=== PATIENT | male | born 1990 | race Two or more races ===

== ENCOUNTER 2017-10-05 13:26 | Emergency (ER) | payer OTHER ==
[~2017-10-05] VITALS: Ht 182.9 cm; Wt 79.5 kg
[~2017-10-05 13:26] MED LIST: CELE10TA PO; CLEO300C2 PO; FOLI1TAB86 PO; MULTTAB4 PO; THIA100T PO; no home medications
[2017-10-05] MEDS ORDERED: ACET50TA PO (13:39)
[2017-10-05] MEDS ORDERED: AMIT25TA PO (13:39)
[2017-10-05] MEDS ORDERED: DILA4TAB13 PO (13:39)
[2017-10-05] MEDS ORDERED: MOTR200T44 PO (13:39)
[2017-10-05] MEDS ORDERED: GABA-283 PO (13:39)
[2017-10-05 17:33] LABS: BASO # 0.1 10^3/uL (0.0-0.2); BASO % 0.3 % (0.0-1.0); EOS % 0.2 % (0.0-3.0); LYMPH # 2.6 10^3/uL (1.5-6.5); MEAN CORPUSCULAR HEMOGLOBIN 33.2 pg (27.0-33.0); MEAN CORPUSCULAR HGB CONC 34.5 g/dl (32.0-36.5); MEAN CORPUSCULAR VOLUME 96.4 fl (80.0-96.0); MONO # 1.6 10^3/uL (0.0-0.8); NEUTROPHILS # 12.8 10^3/uL (1.8-7.7); NEUTROPHILS % 74.5 % (36.0-66.0); PLATELET COUNT, AUTOMATED 146 10^3/uL (150-450); RED CELL DISTRIBUTION WIDTH 12.5 % (11.5-14.5); WHITE BLOOD COUNT 17.2 10^3/uL (4.0-10.0)
[2017-10-05 17:52] LABS: ANION GAP 5 MEQ/L (8-16); BLOOD UREA NITROGEN 8 MG/DL (7-18); CALCIUM LEVEL 8.6 MG/DL (8.5-10.1); CARBON DIOXIDE LEVEL 29 MEQ/L (21-32); CHLORIDE LEVEL 102 MEQ/L (98-107); GLOMERULAR FILTRATION RATE > 60.0 (>60); GLUCOSE, FASTING 77 MG/DL (70-105); POTASSIUM SERUM 4.2 MEQ/L (3.5-5.1); SODIUM LEVEL 136 MEQ/L (136-145)
[2017-10-05] MEDS ORDERED: BACT800T5 PO (18:29)
[2017-10-05] MEDS ORDERED: BACTRIM 160MG/800MG DS TAB PO ONE (18:30)
--- NOTE | 2017-10-05 19:20 | REP ---
Clinical: Pain and swelling. Technique: AP and lateral views of the left tibia / fibula. Findings: Surgical clips in the medial soft tissues of the calf noted along with soft tissue swelling at the calf and ankle. No acute fracture or dislocation. Impression: Soft-tissue swelling and postsurgical changes. No acute fracture dislocation. Signed by Tre Rosales MD 10/05/2017 07:11 P
--- NOTE | 2017-10-05 19:21 | REP ---
Clinical: Pain and swelling. Technique: AP, lateral, bilateral oblique views of the left foot. Findings: Soft tissue swelling is appreciated without subcutaneous emphysema or radiodense foreign body. Osseous structures and joint spaces are intact and normal. No acute fracture dislocation. Impression: Soft-tissue swelling. Signed by Tre Rosales MD 10/05/2017 07:12 P
--- NOTE | 2017-10-05 19:40 | REPUSA ---
Clinical history: Pain, swelling. Findings: The left common femoral, superficial femoral, popliteal, and other deep venous structures c ompress normally and demonstrate normal color Doppler flow. Normal venous waveforms with augmentation are seen. Impression: No evidence of deep vein thrombosis in the left femoral popliteal venous system.
[2017-10-05 20:01] VITALS: BP 117/72
== END 2017-10-05 20:28 | disposition home or self-care (01) ==
LOC: M ED 13:26
DX: M79.89 Other specified soft tissue disorders (principal); D72.829 Elevated white blood cell count, unspecified; R50.9 Fever, unspecified; Z98.890 Other specified postprocedural states; F17.210 Nicotine dependence, cigarettes, uncomplicated; Z79.899 Other long term (current) drug therapy

== ENCOUNTER 2017-10-17 10:35 | Outpatient (RCR) | payer MEDICAID, OTHER, SELFPAY | END 2017-11-10 | LOC: M PT 10-24 10:33 | DX: Z51.89 Encounter for other specified aftercare (principal); M79.672 Pain in left foot; Z98.890 Other specified postprocedural states | CPT/HCPCS: 97110 ==

== ENCOUNTER → 2017-10-20 | Outpatient (CLI) | payer MEDICAID ==
[~2017-10-20] MED LIST changes: +ACET50TA PO; +AMIT25TA PO; +BACT800T5 PO; +DILA4TAB13 PO; +GABA-283 PO; +MOTR200T44 PO
[2017-10-20 11:31] LABS: BASO % 0.5 % (0.0-1.0); EOS % 0.3 % (0.0-3.0); IMMATURE GRANULOCYTE % 0.3 % (0-0); LYMPH # 1.6 10^3/uL (1.5-6.5); LYMPH % 21.1 % (24.0-44.0); MEAN CORPUSCULAR HGB CONC 34.3 g/dl (32.0-36.5); MEAN CORPUSCULAR VOLUME 93.3 fl (80.0-96.0); MONO # 0.6 10^3/uL (0.0-0.8); MONO % 8.3 % (0.0-5.0); NEUTROPHILS # 5.3 10^3/uL (1.8-7.7); NEUTROPHILS % 69.5 % (36.0-66.0); PLATELET COUNT, AUTOMATED 204 10^3/uL (150-450); RED CELL DISTRIBUTION WIDTH 12.5 % (11.5-14.5); WHITE BLOOD COUNT 7.6 10^3/uL (4.0-10.0)
[2017-10-20 14:50] LABS: ERYTHROCYTE SEDIMENTATION RATE 61 mm/hr (0-15)
== END ==
LOC: M LAB 10:48
PROVIDERS: ATTEND Student in an Organized Health Care Education/Training Program
DX: R50.9 Fever, unspecified (principal)

== ENCOUNTER → 2017-10-22 | Outpatient (CLI) | payer MEDICAID | LOC: M OUTALCOH 07:40 | PROVIDERS: ATTEND Psychiatry & Neurology Psychiatry | DX: F11.20 Opioid dependence, uncomplicated (principal) ==

== ENCOUNTER → 2017-10-25 | Outpatient (CLI) | payer MEDICAID ==
[2017-10-25 11:43] LABS: BASO # 0.1 10^3/uL (0.0-0.2); BASO % 0.9 % (0.0-1.0); EOS # 0.2 10^3/uL (0.0-0.50); EOS % 2.2 % (0.0-3.0); IMMATURE GRANULOCYTE % 0.4 % (0-0); LYMPH # 3.1 10^3/uL (1.5-6.5); LYMPH % 33.3 % (24.0-44.0); MEAN CORPUSCULAR HEMOGLOBIN 31.3 pg (27.0-33.0); MEAN CORPUSCULAR HGB CONC 33.4 g/dl (32.0-36.5); MEAN CORPUSCULAR VOLUME 93.6 fl (80.0-96.0); MONO % 10.4 % (0.0-5.0); NEUTROPHILS % 52.8 % (36.0-66.0); PLATELET COUNT, AUTOMATED 386 10^3/uL (150-450); WHITE BLOOD COUNT 9.4 10^3/uL (4.0-10.0)
[2017-10-25 12:03] LABS: ERYTHROCYTE SEDIMENTATION RATE 46 mm/hr (0-15)
--- NOTE | 2017-10-28 16:08 | ECHO ---
DATE OF STUDY: 10/25/2017 REFERRING PHYSICIAN: Dr. Mario Harding INDICATION: Fever. HEIGHT: 183 cm WEIGHT: 79 kg 2-D MEASUREMENTS: Left atrium: 3.8 cm Aortic root: 3.4 cm Ventricular septum: 1.05 cm Posterior wall: 1.11 cm. Left ventricle diastole: 4.9 cm Aortic annulus: 2.5 cm Inferior vena cava: 2.2 cm with more than 50% respiratory variation. DOPPLER MEASUREMENTS: Aortic valve velocity: 116 cm/s LVOT velocity: 66.2 cm/s Mitral E velocity: 77.0cm/s Mitral A velocity: 65.2 cm/s Very mild tricuspid regurgitation. Estimated right ventricle systolic pressure 25 mmHg assuming an atrial pressure of 5 mmHg. MITRAL ANNULAR TISSUE DOPPLER: E prime septal: 7.3 cm/s E prime lateral: 12.7 cm/s DESCRIPTION: Rhythm was sinus. Image quality was good. No pericardial effusion. This was a 2-D, M-mode, color flow Doppler and pulse waved Doppler examination and included mitral annular tissue Doppler. CONCLUSIONS: 1. Normal echocardiogram-Doppler. 2. No vegetations. 3. Normal left ventricle, internal dimensions and wall thickness. Normal regional LV wall motion and wall thickening. Normal LV systolic function. Left ventricular ejection fraction (LVEF) 60% by visual estimate. Normal LV diastolic function.
== END ==
LOC: M LAB 10:45
PROVIDERS: ATTEND Family Medicine
DX: R50.9 Fever, unspecified (principal)

== ENCOUNTER 2017-11-12 10:47 | Outpatient (RCR) | payer OTHER, MEDICAID | END 2017-12-11 | LOC: M PT 10:47 | DX: Z51.89 Encounter for other specified aftercare (principal); M79.672 Pain in left foot ==

== ENCOUNTER → 2017-12-10 | Outpatient (CLI) | payer OTHER ==
[2017-12-10 13:49] LABS: ALBUMIN 4.3 GM/DL (3.2-5.2); ALBUMIN/GLOBULIN RATIO 1.02 (1.00-1.93); ALKALINE PHOSPHATASE 59 U/L (45-117); ALT/SGPT 19 U/L (12-78); ANION GAP 7 MEQ/L (8-16); AST/SGOT 18 U/L (7-37); BILIRUBIN,TOTAL 0.6 MG/DL (0.2-1.0); BLOOD UREA NITROGEN 16 MG/DL (7-18); CALCIUM LEVEL 9.3 MG/DL (8.5-10.1); CARBON DIOXIDE LEVEL 30 MEQ/L (21-32); CHLORIDE LEVEL 100 MEQ/L (98-107); CREATININE FOR GFR 0.74 MG/DL (0.70-1.30); GLOMERULAR FILTRATION RATE > 60.0 (>60); GLUCOSE, FASTING 65 MG/DL (70-100); POTASSIUM SERUM 4.4 MEQ/L (3.5-5.1); SODIUM LEVEL 137 MEQ/L (136-145); TOTAL PROTEIN 8.5 GM/DL (6.4-8.2)
[2017-12-11 13:10] LABS: HEPATITIS C VIRUS ABY INDEX > 11.0 INDEX (<0.8)
[2017-12-13 08:07] LABS: HEPATITIS C QUANTITATION 110 IU/mL (.)
== END ==
LOC: M LAB 12:06
DX: Z86.19 Personal history of other infectious and parasitic diseases (principal)
CPT/HCPCS: 80053

== ENCOUNTER → 2017-12-11 | Outpatient (CLI) | payer OTHER ==
[~2017-12-11] MED LIST changes: -ACET50TA PO; -AMIT25TA PO; -BACT800T5 PO; -CELE10TA PO; -CLEO300C2 PO; -DILA4TAB13 PO; -FOLI1TAB86 PO; -GABA-283 PO; +MIDAZOLAM INJ 2 MG/2 ML VIAL (J2250) As Ordered; -MOTR200T44 PO; -MULTTAB4 PO; -THIA100T PO; -no home medications
== END ==
LOC: M PAIN 14:30
DX: G89.29 Other chronic pain (principal); M79.605 Pain in left leg; M25.572 Pain in left ankle and joints of left foot; F11.10 Opioid abuse, uncomplicated; F41.0 Panic disorder [episodic paroxysmal anxiety]; F17.200 Nicotine dependence, unspecified, uncomplicated; Z79.1 Long term (current) use of non-steroidal anti-inflammatories (NSAID); Z79.899 Other long term (current) drug therapy; Z87.828 Personal history of other (healed) physical injury and trauma; Z86.19 Personal history of other infectious and parasitic diseases
CPT/HCPCS: G0463

== ENCOUNTER 2017-12-19 10:51 | Outpatient (RCR) | payer OTHER | END 2018-01-08 | LOC: M PT 10:51 | DX: Z51.89 Encounter for other specified aftercare (principal); M79.672 Pain in left foot ==

== ENCOUNTER 2018-01-09 14:19 | Outpatient (RCR) | payer OTHER | END 2018-02-08 | LOC: M PT 01-16 14:30 | DX: Z51.89 Encounter for other specified aftercare (principal); M79.672 Pain in left foot ==

== ENCOUNTER 2018-02-07 19:48 | Emergency (ER) | payer OTHER ==
[2018-02-07 20:32] LABS: BASO % 0.3 % (0.0-1.0); EOS # 0.1 10^3/uL (0.0-0.50); EOS % 0.5 % (0.0-3.0); HEMATOCRIT 42.3 % (42.0-52.0); HEMOGLOBIN 15.1 g/dl (13.5-17.5); IMMATURE GRANULOCYTE % 0.3 % (0-3.0); LYMPH # 1.9 10^3/uL (1.5-6.5); LYMPH % 17.1 % (24.0-44.0); MEAN CORPUSCULAR HEMOGLOBIN 29.9 pg (27.0-33.0); MEAN CORPUSCULAR HGB CONC 35.7 g/dl (32.0-36.5); MEAN CORPUSCULAR VOLUME 83.8 fl (80.0-96.0); MONO # 0.5 10^3/uL (0.0-0.8); MONO % 4.5 % (0.0-5.0); NEUTROPHILS # 8.5 10^3/uL (1.8-7.7); NEUTROPHILS % 77.3 % (36.0-66.0); PLATELET COUNT, AUTOMATED 277 10^3/uL (150-450); RED BLOOD COUNT 5.05 10^6/uL (4.30-6.10); RED CELL DISTRIBUTION WIDTH 13.1 % (11.5-14.5); WHITE BLOOD COUNT 10.9 10^3/uL (4.0-10.0)
[2018-02-07 20:33] LABS: BEDSIDE GLUCOSE 93 MG/DL (70-105)
[2018-02-07 21:01] LABS: OSMOLALITY SERUM 291 MOSM/KG (275-295)
[2018-02-07 21:06] LABS: ALBUMIN/GLOBULIN RATIO 1.03 (1.00-1.93); ALKALINE PHOSPHATASE 74 U/L (45-117); ALT/SGPT 19 U/L (12-78); ANION GAP 9 MEQ/L (8-16); AST/SGOT 38 U/L (7-37); BILIRUBIN,DIRECT 0.2 MG/DL (0.0-0.2); BLOOD UREA NITROGEN 17 MG/DL (7-18); CALCIUM LEVEL 8.8 MG/DL (8.5-10.1); CARBON DIOXIDE LEVEL 23 MEQ/L (21-32); CHLORIDE LEVEL 107 MEQ/L (98-107); CPK CREATINE PHOSPHOKINASE 175 U/L (39-308); CREATININE FOR GFR 0.82 MG/DL (0.70-1.30); GLOMERULAR FILTRATION RATE > 60.0 (>60); GLUCOSE, FASTING 67 MG/DL (70-100); POTASSIUM SERUM 4.4 MEQ/L (3.5-5.1); SODIUM LEVEL 139 MEQ/L (136-145); TOTAL PROTEIN 7.9 GM/DL (6.4-8.2)
[2018-02-07 21:32] LABS: ACETAMINOPHEN LEVEL < 2.0 UG/ML (10.0-30.0); ETHYL ALCOHOL (ETHANOL) < 0.003 % (0.000-0.010)
== END 2018-02-08 02:07 | disposition home or self-care (01) ==
LOC: M ED 02-08 02:07
DX: F19.10 Other psychoactive substance abuse, uncomplicated (principal); F32.9 Major depressive disorder, single episode, unspecified; F17.200 Nicotine dependence, unspecified, uncomplicated; Z79.899 Other long term (current) drug therapy
CPT/HCPCS: 93005

== ENCOUNTER 2019-02-23 00:34 | Emergency (ER) | payer OTHER, SELFPAY ==
[~2019-02-23] VITALS: Ht 180.3 cm; Wt 88.6 kg
[~2019-02-23 00:34] MED LIST changes: +AMIT25TA PO; +BACT800T5 PO; +CELE10TA PO; +CLEO300C2 PO; +DILA4TAB13 PO; +FOLI1TAB86 PO; +GABA-845 PO; +MAPA500T2 PO; -MIDAZOLAM INJ 2 MG/2 ML VIAL (J2250) As Ordered; +MOTR200T44 PO; +MULTTAB4 PO; +THIA100T PO; +no home medications
[2019-02-23] MEDS ORDERED: KETOROLAC TROMETHAMINE 10 MG TAB PO ONE (01:15)
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
[2019-02-23] MEDS ORDERED: PERC5TAB12 PO (02:49)
[2019-02-23 02:55] VITALS: BP 106/56
[2019-02-23] MEDS ORDERED: OXYCODONE/APAP 5MG/325MG(BULK FOR ED) 1 TABLET PO ONE (03:00)
== END 2019-02-23 03:01 | disposition home or self-care (01) ==
LOC: EDBD → M ED 00:34 → MERGE 00:34 → M ED 03:01
DX: S02.601A Fracture of unspecified part of body of right mandible, initial encounter for closed fracture (principal); Y04.8XXA Assault by other bodily force, initial encounter; Y92.89 Other specified places as the place of occurrence of the external cause; F17.210 Nicotine dependence, cigarettes, uncomplicated

== ENCOUNTER → 2019-10-30 | Outpatient (CLI) | payer OTHER ==
[~2019-10-30] MED LIST changes: +PERC5TAB12 PO
[2019-10-30 11:32] LABS: HEMATOCRIT 48.1 % (42.0-52.0); HEMOGLOBIN 16.1 g/dl (13.5-17.5); MEAN CORPUSCULAR HEMOGLOBIN 30.8 pg (27.0-33.0); MEAN CORPUSCULAR HGB CONC 33.5 g/dl (32.0-36.5); PLATELET COUNT, AUTOMATED 193 10^3/uL (150-450); RED BLOOD COUNT 5.23 10^6/uL (4.30-6.10); WHITE BLOOD COUNT 7.9 10^3/uL (4.0-10.0)
[2019-10-30 12:32] LABS: ALBUMIN 4.1 GM/DL (3.2-5.2); ALT/SGPT 61 U/L (12-78); BILIRUBIN,TOTAL 0.6 MG/DL (0.2-1.0); BLOOD UREA NITROGEN 13 MG/DL (7-18); CALCIUM LEVEL 8.8 MG/DL (8.5-10.1); CARBON DIOXIDE LEVEL 27 MEQ/L (21-32); CHLORIDE LEVEL 105 MEQ/L (98-107); CREATININE FOR GFR 0.84 MG/DL (0.70-1.30); GLOMERULAR FILTRATION RATE > 60.0 (>60); GLUCOSE, FASTING 65 MG/DL (70-100); HEPATITIS B SURFACE ANTIGEN NEGATIVE (NEGATIVE); POTASSIUM SERUM 4.3 MEQ/L (3.5-5.1); SODIUM LEVEL 138 MEQ/L (136-145); TOTAL PROTEIN 7.8 GM/DL (6.4-8.2)
[2019-10-30 12:55] LABS: HIV 1&2 SCREEN CENTAUR NEGATIVE (NEGATIVE)
[2019-10-30 12:58] LABS: HEPATITIS C VIRUS ABY INDEX > 11.0 INDEX (<0.8)
[2019-10-30 13:41] LABS: CHLAMYDIA DNA AMPLIFICATION NEGATIVE (NEGATIVE); GC DNA AMPLIFICATION NEGATIVE (NEGATIVE)
== END ==
LOC: M LAB 10:36
PROVIDERS: ATTEND Family Medicine
DX: F11.20 Opioid dependence, uncomplicated (principal)

== ENCOUNTER → 2019-11-12 | Outpatient (CLI) | payer MEDICAID, OTHER ==
--- NOTE | 2019-11-12 20:44 | ECGEPIP ---
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
== END ==
LOC: M EKG 11:38
PROVIDERS: ATTEND Family Medicine
DX: F11.90 Opioid use, unspecified, uncomplicated (principal)

== ENCOUNTER 2020-07-13 13:47 | Emergency (ER) | payer MEDICAID ==
[~2020-07-13] VITALS: Ht 180.3 cm; Wt 101.8 kg
[2020-07-13 13:47] VITALS: BP 124/71
== END 2020-07-13 14:32 | disposition left against medical advice (07) ==
LOC: M ED 13:47
DX: Z53.21 Procedure and treatment not carried out due to patient leaving prior to being seen by health care provider (principal)

== ENCOUNTER 2020-10-22 20:53 | Emergency (ER) | payer MEDICAID ==
[~2020-10-22] VITALS: Ht 182.9 cm; Wt 98.6 kg
[2020-10-22] MEDS ORDERED: ACET1TAB55 PO (21:02)
[2020-10-22] MEDS ORDERED: METH10TA2 PO (21:02)
[2020-10-22 21:39] VITALS: BP 127/85
== END 2020-10-22 23:33 | disposition home or self-care (01) ==
LOC: M ED 20:53
DX: F19.10 Other psychoactive substance abuse, uncomplicated (principal); F41.9 Anxiety disorder, unspecified; F17.210 Nicotine dependence, cigarettes, uncomplicated; Z79.899 Other long term (current) drug therapy; Z79.891 Long term (current) use of opiate analgesic

== ENCOUNTER → 2021-03-17 | Outpatient (REF) | payer OTHER, SELFPAY ==
[~2021-03-17] MED LIST changes: +ACET1TAB55 PO; -AMIT25TA PO; +AMIT25TA17 PO; +GABA-283 PO; -GABA-845 PO; +METH10TA2 PO
== END ==
LOC: M LAB 20:24
PROVIDERS: ATTEND Surgery
DX: A54.00 Gonococcal infection of lower genitourinary tract, unspecified (principal); A56.2 Chlamydial infection of genitourinary tract, unspecified

== ENCOUNTER 2022-03-21 20:03 | Emergency (ER) | payer OTHER, SELFPAY ==
[~2022-03-21] VITALS: Ht 182.9 cm; Wt 95.5 kg
[~2022-03-21 20:03] MED LIST changes: +METH-1177 PO; -METH10TA2 PO
[2022-03-21] MEDS ORDERED: QUET1TAB17 PO (20:17)
[2022-03-21] MEDS ORDERED: BUPR300T92 PO (20:17)
[2022-03-21] MEDS ORDERED: ASPI-527 PO (20:17)
[2022-03-21] MEDS ORDERED: BUPR150T12 PO (20:17)
[2022-03-22 01:37] LABS: BASO # 0.1 10^3/uL (0.0-0.2); BASO % 0.5 % (0.0-1.0); EOS # 0.1 10^3/uL (0.0-0.5); EOS % 1.1 % (0.0-3.0); HEMATOCRIT 38.9 % (42.0-52.0); HEMOGLOBIN 12.9 g/dl (13.5-17.5); LYMPH # 1.8 10^3/uL (1.5-5.0); MEAN CORPUSCULAR HEMOGLOBIN 30.8 pg (27.0-33.0); MEAN CORPUSCULAR HGB CONC 33.2 g/dl (32.0-36.5); MEAN CORPUSCULAR VOLUME 92.8 fl (80.0-96.0); MONO % 15.7 % (2.0-8.0); NEUTROPHILS # 7.5 10^3/uL (1.5-8.5); NEUTROPHILS % 66.2 % (36.0-66.0); PLATELET COUNT, AUTOMATED 436 10^3/uL (150-450); RED BLOOD COUNT 4.19 10^6/uL (4.30-6.10); WHITE BLOOD COUNT 11.4 10^3/uL (4.0-10.0)
[2022-03-22 02:01] LABS: ALBUMIN 2.9 GM/DL (3.2-5.2); BILIRUBIN,DIRECT 0.2 MG/DL (0.0-0.2); BILIRUBIN,TOTAL 0.7 MG/DL (0.2-1.0); TOTAL PROTEIN 7.2 GM/DL (6.4-8.2)
[2022-03-22 02:03] LABS: RSV AMPLIFICATION NEGATIVE (NEGATIVE)
[2022-03-22] MEDS ORDERED: LevoFLOXacin 750 MG TABLET PO ONE (02:15)
[2022-03-22 02:22] LABS: MONO # 1.8 10^3/uL (0.0-0.8)
[2022-03-22] MEDS ORDERED: LEVO750T13 PO (02:23)
[2022-03-22] MEDS ORDERED: VENTAER INH (02:23)
[2022-03-22] MEDS ORDERED: BENZ200C70 PO (02:23)
[2022-03-22] MEDS ORDERED: ACETAMINOPHEN TAB 650MG DOSE (2X325MG) PO ONE (02:55)
[2022-03-22] MEDS ORDERED: IBUPROFEN 800 MG TAB PO ONE (02:55)
[2022-03-22 03:45] VITALS: BP 130/60
== END 2022-03-22 04:00 | disposition home or self-care (01) ==
LOC: M ED 20:03
DX: J18.9 Pneumonia, unspecified organism (principal); J90 Pleural effusion, not elsewhere classified; B19.20 Unspecified viral hepatitis C without hepatic coma; F41.9 Anxiety disorder, unspecified; F17.290 Nicotine dependence, other tobacco product, uncomplicated; Z79.82 Long term (current) use of aspirin; Z79.899 Other long term (current) drug therapy

== ENCOUNTER 2022-03-26 15:17 | Inpatient (IN) | payer OTHER ==
[~2022-03-26] VITALS: Ht 182.9 cm; Wt 93.5 kg
[~2022-03-26 15:17] MED LIST changes: +ASPI-527 PO; +BENZ200C70 PO; +BUPR150T12 PO; +BUPR300T92 PO; +LEVO750T13 PO; +QUET1TAB17 PO; +VENTAER INH
[2022-03-26 17:25] LABS: BASO # 0.1 10^3/uL (0.0-0.2); BASO % 0.3 % (0.0-1.0); EOS % 0.2 % (0.0-3.0); HEMATOCRIT 39.1 % (42.0-52.0); HEMOGLOBIN 12.8 g/dl (13.5-17.5); LYMPH # 1.9 10^3/uL (1.5-5.0); LYMPH % 10.3 % (24.0-44.0); MEAN CORPUSCULAR HEMOGLOBIN 30.3 pg (27.0-33.0); MEAN CORPUSCULAR HGB CONC 32.7 g/dl (32.0-36.5); MEAN CORPUSCULAR VOLUME 92.4 fl (80.0-96.0); MONO # 1.5 10^3/uL (0.0-0.8); MONO % 8.3 % (2.0-8.0); NEUTROPHILS # 14.3 10^3/uL (1.5-8.5); NEUTROPHILS % 80.1 % (36.0-66.0); PLATELET COUNT, AUTOMATED 457 10^3/uL (150-450); RED BLOOD COUNT 4.23 10^6/uL (4.30-6.10); WHITE BLOOD COUNT 17.9 10^3/uL (4.0-10.0)
[2022-03-26 17:30] LABS: INR 1.32; PROTHROMBIN TIME 16.8 SECONDS (12.7-14.5)
[2022-03-26 17:31] LABS: PARTIAL THROMBOPLASTIN TIME 37.8 SECONDS (25.9-37.0)
[2022-03-26] MEDS ORDERED: cefTRIAXone SOD 2 GM in D5W MINI-BAG PLUS 50 ML IV ONE (17:40)
[2022-03-26] MEDS ORDERED: LevoFLOXacin IV 750 MG in IV 1 EA IV ONE (17:40)
[2022-03-26 17:47] LABS: D-DIMER QUANT 3612.03 ng/ml (<500)
[2022-03-26 17:50] LABS: ALBUMIN 2.3 GM/DL (3.2-5.2); ALT/SGPT 52 U/L (12-78); BILIRUBIN,DIRECT 0.3 MG/DL (0.0-0.2); BILIRUBIN,TOTAL 0.6 MG/DL (0.2-1.0); BLOOD UREA NITROGEN 15 MG/DL (7-18); CALCIUM LEVEL 8.9 MG/DL (8.5-10.1); CARBON DIOXIDE LEVEL 29 MEQ/L (21-32); CHLORIDE LEVEL 102 MEQ/L (98-107); CREATININE FOR GFR 1.07 MG/DL (0.70-1.30); GLOMERULAR FILTRATION RATE > 60.0 (>60); GLUCOSE, FASTING 90 MG/DL (70-100); NT-PRO BNP 293 PG/ML (<125); POTASSIUM SERUM 4.4 MEQ/L (3.5-5.1); SODIUM LEVEL 139 MEQ/L (136-145); TOTAL PROTEIN 7.4 GM/DL (6.4-8.2)
[2022-03-26 17:51] LABS: ERYTHROCYTE SEDIMENTATION RATE 83 mm/hr (0-15)
[2022-03-26 17:55] LABS: CK-MB VALUE MASS < 1.0 NG/ML (<3.6); CPK CREATINE PHOSPHOKINASE 21 U/L (39-308); MB/CK RELATIVE INDEX 4.76 (< OR =4)
[2022-03-26] MEDS ORDERED: ACETAMINOPHEN 500 MG TAB PO ONE (18:10)
[2022-03-26] MEDS ORDERED: NS 1,000 ML IV ONE (18:20)
[2022-03-26] MEDS ORDERED: ISOVUE-370 76% 100ML VIAL As Ordered ONE (18:47)
[2022-03-26] MEDS ORDERED: HOME MED LIST COMPLETE! XX SCH (19:30)
[2022-03-26] MEDS ORDERED: BENZ200C70 PO (19:30)
[2022-03-26] MEDS ORDERED: LEVO750T13 PO (19:30)
[2022-03-26] MEDS ORDERED: VENTAER INH (19:30)
[2022-03-26] MEDS: IPRATROPIUM 0.5MG/ALBUTEROL 2.5MG INH SOL UD 3ML (DUONEB) NEB SCH (20:00)
[2022-03-26] MEDS ORDERED: VANCOMYCIN HCL 1,750 MG in IV FLUID PLACE HOLDER 1 EA IV ONE (20:10)
[2022-03-26] MEDS ORDERED: VANCOMYCIN HCL 1,000 MG, VIAL MATE ADAPTER 1 EACH in NS 250 ML IV ONE (20:30)
[2022-03-26] MEDS ORDERED: methylPREDNISolone 125MG 2ML VIAL IV ONE (20:30)
[2022-03-26] MEDS ORDERED: ALBUTEROL SULFATE 2.5 MG/0.5 ML INH NEB SOLN NEB ONE (20:30)
[2022-03-26] MEDS ORDERED: DORNASE INHALATION SOLN 1 MG/ML 2.5 ML AMP XX ONE (20:45)
[2022-03-26] MEDS ORDERED: ALTEPLASE 2MG/2ML VIAL XX ONE (20:45)
[2022-03-26] MEDS ORDERED: LIDOCAINE 1% MDV 20ML VIAL As Ordered ONE (20:55)
[2022-03-26] MEDS ORDERED: SODIUM CHLORIDE 0.9% 250ML XX ONE (21:25)
[2022-03-26] MEDS ORDERED: VANCOMYCIN HCL 750 MG, VIAL MATE ADAPTER 1 EACH in NS 250 ML IV ONE (21:30)
[2022-03-26 22:46] LABS: LDH LACTATE DEHYDROGENASE 278 U/L (87-241)
[2022-03-26] MEDS ORDERED: VANCOMYCIN HCL 1,250 MG, VIAL MATE ADAPTER 1 EACH in NS 250 ML IV SCH (22:55)
[2022-03-26] MEDS ORDERED: cefTRIAXone SOD 1GM VIAL (J0696 PER 250MG) IM SCH (22:55)
[2022-03-26] MEDS ORDERED: ALBUTEROL SULFATE 2.5 MG/0.5 ML INH NEB SOLN NEB PRN (22:55)
[2022-03-26 23:07] LABS: PH BODY FLUID 6.859 UNITS (NOT ESTABLISHED); SOURCE, BODY FLUID pH PLEURAL
[2022-03-26 23:16] LABS: SOURCE, BODY FLUID PLEURAL
[2022-03-26 23:17] LABS: APPEARANCE, BODY FLUID TURBID (CLEAR); PLEURAL FL COLOR YELLOW (COLORLESS)
[2022-03-26 23:33] LABS: SOURCE, BODY FLUID ALBUMIN PLEURAL; SOURCE, BODY FLUID TOT PROTEIN PLEURAL; TOTAL PROTEIN, BODY FLUID 5.6 G/DL (NOT ESTABLISHED)
[2022-03-26 23:39] LABS: AMYLASE, BODY FLUID 21 U/L (NOT ESTABLISHED); CHOLESTEROL, BODY FLUID 72 MG/DL (NOT ESTABLISHED); LDH, BODY FLUID 1737 U/L (NOT ESTABLISHED); SOURCE, BODY FLUID AMYLASE PLEURAL; SOURCE, BODY FLUID CHOL PLEURAL; SOURCE, BODY FLUID GLUCOSE PLEURAL; SOURCE, BODY FLUID LDH PLEURAL; SOURCE, BODY FLUID TRIG PLEURAL; TRIGLYCERIDE, BODY FLUID 54 MG/DL (NOT ESTABLISHED)
[2022-03-26] MEDS: LR 1,000 ML IV SCH (23:56)
[2022-03-27] VITALS (20 sets, daily range): BP systolic 109–140; BP diastolic 56–80
[2022-03-27] MEDS: QUEtiapine FUMARATE 25 MG TAB PO SCH ×2 (00:57→20:35)
[2022-03-27] MEDS: KETOROLAC 30 MG/ML 1ML VIAL IV PRN ×3 (02:19→23:25)
[2022-03-27] MEDS ORDERED: methylPREDNISolone 125MG 2ML VIAL IV SCH (05:00)
[2022-03-27] MEDS: VANCOMYCIN HCL 750 MG, VIAL MATE ADAPTER 1 EACH in NS 250 ML IV SCH ×6 (05:19→22:06)
[2022-03-27] MEDS: HEPARIN SOD (PORCINE) 5000UNITS/ML 1ML VIAL/SYRINGE SC SCH ×3 (05:20→22:06)
[2022-03-27 06:07] LABS: ABG BASE EXCESS 2.8 (-2.0-2.0); ABG HCO3 27.6 MEQ/L (22.0-26.0); ABG O2 SATURATION 97.3 % (95.0-99.0); ABG PARTIAL PRESSURE CO2 43.3 mmHg (35.0-45.0); ABG PARTIAL PRESSURE O2 104.3 mmHg (75.0-100.0); ABG pH (ARTERIAL) 7.423 UNITS (7.350-7.450)
[2022-03-27 07:42] LABS: HEMATOCRIT 33.9 % (42.0-52.0); HEMOGLOBIN 11.2 g/dl (13.5-17.5); MEAN CORPUSCULAR HEMOGLOBIN 30.2 pg (27.0-33.0); MEAN CORPUSCULAR VOLUME 91.4 fl (80.0-96.0); PLATELET COUNT, AUTOMATED 396 10^3/uL (150-450); RED BLOOD COUNT 3.71 10^6/uL (4.30-6.10); WHITE BLOOD COUNT 13.5 10^3/uL (4.0-10.0)
[2022-03-27 07:56] LABS: ALBUMIN 1.9 GM/DL (3.2-5.2); ALT/SGPT 35 U/L (12-78); BILIRUBIN,TOTAL 0.4 MG/DL (0.2-1.0); BLOOD UREA NITROGEN 17 MG/DL (7-18); CALCIUM LEVEL 7.9 MG/DL (8.5-10.1); CARBON DIOXIDE LEVEL 27 MEQ/L (21-32); CHLORIDE LEVEL 105 MEQ/L (98-107); CREATININE FOR GFR 0.87 MG/DL (0.70-1.30); GLOMERULAR FILTRATION RATE > 60.0 (>60); GLUCOSE, FASTING 167 MG/DL (70-100); POTASSIUM SERUM 4.4 MEQ/L (3.5-5.1); SODIUM LEVEL 138 MEQ/L (136-145)
[2022-03-27] MEDS: IPRATROPIUM 0.5MG/ALBUTEROL 2.5MG INH SOL UD 3ML (DUONEB) NEB SCH ×4 (08:30→20:28)
[2022-03-27] MEDS ORDERED: buPROPion **XL** TABLET 150MG (WELLBUTRIN XL) PO SCH (09:00)
[2022-03-27] MEDS: metroNIDAZOLE 500 MG in IV 1 EA IV SCH ×2 (09:52→18:03)
[2022-03-27] MEDS: buPROPion **XL** TABLET 150MG (WELLBUTRIN XL) PO SCH (09:52)
[2022-03-27] MEDS ORDERED: ALTEPLASE 2MG/2ML VIAL XX ONE (10:00)
[2022-03-27] MEDS ORDERED: SODIUM CHLORIDE 0.9% 100ML BAG XX ONE (10:00)
[2022-03-27] MEDS ORDERED: DORNASE INHALATION SOLN 1 MG/ML 2.5 ML AMP XX ONE (10:00)
[2022-03-27] MEDS: methylPREDNISolone 40MG 1ML VIAL IV SCH ×2 (12:53→20:35)
[2022-03-27] MEDS: LR 1,000 ML IV SCH (12:53)
[2022-03-27] MEDS: cefTRIAXone SOD 1 GM in D5W MINI-BAG PLUS 50 ML IV SCH (23:25)
[2022-03-28] VITALS (11 sets, daily range): BP systolic 112–155; BP diastolic 58–76; O2SAT 95
[2022-03-28] MEDS: metroNIDAZOLE 500 MG in IV 1 EA IV SCH ×3 (02:28→18:52)
[2022-03-28] MEDS: KETOROLAC 30 MG/ML 1ML VIAL IV PRN (05:12)
[2022-03-28] MEDS: methylPREDNISolone 40MG 1ML VIAL IV SCH ×3 (05:12→19:51)
[2022-03-28] MEDS: VANCOMYCIN HCL 750 MG, VIAL MATE ADAPTER 1 EACH in NS 250 ML IV SCH ×3 (05:12→13:58)
[2022-03-28] MEDS: HEPARIN SOD (PORCINE) 5000UNITS/ML 1ML VIAL/SYRINGE SC SCH ×3 (05:13→21:03)
[2022-03-28 05:57] LABS: ABG HCO3 22.4 MEQ/L (22.0-26.0); ABG PARTIAL PRESSURE CO2 33.2 mmHg (35.0-45.0); ABG PARTIAL PRESSURE O2 66.7 mmHg (75.0-100.0); ABG STANDARD HCO3 23.5 MEQ/L (22.0-26.0); ABG TOTAL CO2 23.4 MEQ/L (22.0-29.0); ABG pH (ARTERIAL) 7.447 UNITS (7.350-7.450)
[2022-03-28 07:47] LABS: BASO % 0.2 % (0.0-1.0); HEMATOCRIT 32.8 % (42.0-52.0); HEMOGLOBIN 10.8 g/dl (13.5-17.5); LYMPH # 1.2 10^3/uL (1.5-5.0); LYMPH % 8.1 % (24.0-44.0); MEAN CORPUSCULAR HEMOGLOBIN 30.6 pg (27.0-33.0); MEAN CORPUSCULAR HGB CONC 32.9 g/dl (32.0-36.5); MEAN CORPUSCULAR VOLUME 92.9 fl (80.0-96.0); MONO # 0.6 10^3/uL (0.0-0.8); MONO % 4.1 % (2.0-8.0); NEUTROPHILS # 12.5 10^3/uL (1.5-8.5); NEUTROPHILS % 85.2 % (36.0-66.0); PLATELET COUNT, AUTOMATED 417 10^3/uL (150-450); RED BLOOD COUNT 3.53 10^6/uL (4.30-6.10); WHITE BLOOD COUNT 14.6 10^3/uL (4.0-10.0)
[2022-03-28] MEDS: buPROPion **XL** TABLET 150MG (WELLBUTRIN XL) PO SCH (07:58)
[2022-03-28 08:12] LABS: ALBUMIN 1.6 GM/DL (3.2-5.2); ALT/SGPT 83 U/L (12-78); BILIRUBIN,TOTAL 0.3 MG/DL (0.2-1.0); BLOOD UREA NITROGEN 21 MG/DL (7-18); CALCIUM LEVEL 8.1 MG/DL (8.5-10.1); CARBON DIOXIDE LEVEL 25 MEQ/L (21-32); CHLORIDE LEVEL 109 MEQ/L (98-107); CREATININE FOR GFR 0.79 MG/DL (0.70-1.30); GLOMERULAR FILTRATION RATE > 60.0 (>60); GLUCOSE, FASTING 155 MG/DL (70-100); MAGNESIUM LEVEL 2.3 MG/DL (1.8-2.4); POTASSIUM SERUM 4.5 MEQ/L (3.5-5.1); SODIUM LEVEL 142 MEQ/L (136-145); TOTAL PROTEIN 5.7 GM/DL (6.4-8.2)
[2022-03-28] MEDS: IPRATROPIUM 0.5MG/ALBUTEROL 2.5MG INH SOL UD 3ML (DUONEB) NEB SCH ×4 (08:15→20:25)
[2022-03-28] MEDS: QUEtiapine FUMARATE 25 MG TAB PO SCH (21:03)
[2022-03-28] MEDS: cefTRIAXone SOD 1 GM in D5W MINI-BAG PLUS 50 ML IV SCH (22:38)
[2022-03-29] VITALS: BP 116/62
[2022-03-29] MEDS: metroNIDAZOLE 500 MG in IV 1 EA IV SCH ×3 (01:06→18:03)
[2022-03-29 04:11] LABS: HEMATOCRIT 33.8 % (42.0-52.0); MEAN CORPUSCULAR HEMOGLOBIN 30.1 pg (27.0-33.0); MEAN CORPUSCULAR HGB CONC 32.5 g/dl (32.0-36.5); MEAN CORPUSCULAR VOLUME 92.3 fl (80.0-96.0); PLATELET COUNT, AUTOMATED 453 10^3/uL (150-450); RED BLOOD COUNT 3.66 10^6/uL (4.30-6.10); WHITE BLOOD COUNT 14.2 10^3/uL (4.0-10.0)
[2022-03-29 04:40] LABS: BLOOD UREA NITROGEN 21 MG/DL (7-18); C REACTIVE PROTEIN QUANTITATIV 8.28 MG/DL (0.00-0.30); CALCIUM LEVEL 8.2 MG/DL (8.5-10.1); CARBON DIOXIDE LEVEL 26 MEQ/L (21-32); CHLORIDE LEVEL 107 MEQ/L (98-107); CREATININE FOR GFR 0.82 MG/DL (0.70-1.30); GLOMERULAR FILTRATION RATE > 60.0 (>60); GLUCOSE, FASTING 131 MG/DL (70-100); MAGNESIUM LEVEL 2.4 MG/DL (1.8-2.4); SODIUM LEVEL 140 MEQ/L (136-145)
[2022-03-29] MEDS: HEPARIN SOD (PORCINE) 5000UNITS/ML 1ML VIAL/SYRINGE SC SCH ×3 (04:54→20:12)
[2022-03-29] MEDS: methylPREDNISolone 40MG 1ML VIAL IV SCH ×2 (04:54→18:02)
[2022-03-29 05:01] LABS: ANISOCYTOSIS 1+; ATYPICAL LYMPH 1 % (0-5); LYMPHOCYTES 8 % (16-44); MONOCYTES 5 % (0-5); NEUTROPHILS 84 % (28-66); PLATELET ESTIMATE NORMAL (NORMAL)
[2022-03-29] MEDS: KETOROLAC 30 MG/ML 1ML VIAL IV PRN (05:02)
[2022-03-29 05:14] VITALS: BP 114/62
[2022-03-29] MEDS: IPRATROPIUM 0.5MG/ALBUTEROL 2.5MG INH SOL UD 3ML (DUONEB) NEB SCH ×4 (07:07→20:22)
[2022-03-29 08:51] VITALS: BP 116/63
[2022-03-29] MEDS: buPROPion **XL** TABLET 150MG (WELLBUTRIN XL) PO SCH (08:58)
[2022-03-29] MEDS: SYMBICORT 160/4.5MCG INHALER 6GM INH SCH ×2 (10:28→20:22)
[2022-03-29 12:26] VITALS: BP 128/61
[2022-03-29 20:00] VITALS: BP 149/67
[2022-03-29] MEDS: QUEtiapine FUMARATE 25 MG TAB PO SCH (20:12)
[2022-03-29] MEDS: cefTRIAXone SOD 1 GM in D5W MINI-BAG PLUS 50 ML IV SCH (21:54)
[2022-03-30] VITALS: BP 130/72
[2022-03-30] MEDS: metroNIDAZOLE 500 MG in IV 1 EA IV SCH (02:20)
[2022-03-30 04:26] VITALS: BP 119/65
[2022-03-30] MEDS: methylPREDNISolone 40MG 1ML VIAL IV SCH (05:24)
[2022-03-30] MEDS: HEPARIN SOD (PORCINE) 5000UNITS/ML 1ML VIAL/SYRINGE SC SCH ×3 (05:24→21:51)
[2022-03-30 06:57] LABS: HEMATOCRIT 37.3 % (42.0-52.0); MEAN CORPUSCULAR HEMOGLOBIN 29.9 pg (27.0-33.0); MEAN CORPUSCULAR HGB CONC 32.2 g/dl (32.0-36.5); MEAN CORPUSCULAR VOLUME 92.8 fl (80.0-96.0); PLATELET COUNT, AUTOMATED 536 10^3/uL (150-450); RED BLOOD COUNT 4.02 10^6/uL (4.30-6.10); WHITE BLOOD COUNT 17.3 10^3/uL (4.0-10.0)
[2022-03-30] MEDS: SYMBICORT 160/4.5MCG INHALER 6GM INH SCH ×2 (07:13→20:12)
[2022-03-30] MEDS: IPRATROPIUM 0.5MG/ALBUTEROL 2.5MG INH SOL UD 3ML (DUONEB) NEB SCH ×4 (07:14→20:00)
[2022-03-30 07:26] LABS: BLOOD UREA NITROGEN 22 MG/DL (7-18); C REACTIVE PROTEIN QUANTITATIV 4.05 MG/DL (0.00-0.30); CALCIUM LEVEL 8.6 MG/DL (8.5-10.1); CARBON DIOXIDE LEVEL 25 MEQ/L (21-32); CHLORIDE LEVEL 103 MEQ/L (98-107); CREATININE FOR GFR 0.81 MG/DL (0.70-1.30); GLOMERULAR FILTRATION RATE > 60.0 (>60); GLUCOSE, FASTING 113 MG/DL (70-100); MAGNESIUM LEVEL 2.4 MG/DL (1.8-2.4); POTASSIUM SERUM 5.1 MEQ/L (3.5-5.1); SODIUM LEVEL 136 MEQ/L (136-145)
[2022-03-30 08:00] VITALS: BP 135/74
[2022-03-30] MEDS: buPROPion **XL** TABLET 150MG (WELLBUTRIN XL) PO SCH (08:16)
[2022-03-30 08:30] LABS: ANISOCYTOSIS 1+; ATYPICAL LYMPH 3 % (0-5); LYMPHOCYTES 15 % (16-44); METAMYELOCYTES 5 % (0-0); MONOCYTES 8 % (0-5); MYELOCYTES 4 % (0-0); NEUTROPHILS 64 % (28-66); PLATELET ESTIMATE INCREASED (NORMAL)
[2022-03-30] MEDS: predniSONE 20 MG TAB PO SCH (09:23)
[2022-03-30] MEDS: AUGMENTIN 875 MG TAB PO SCH ×2 (09:23→20:09)
[2022-03-30] MEDS: guaiFENesin ER 600 MG TAB PO SCH ×2 (11:49→20:09)
[2022-03-30 11:55] VITALS: BP 126/62
[2022-03-30 16:00] VITALS: BP 125/65
[2022-03-30 20:00] VITALS: BP 128/85
[2022-03-30] MEDS: QUEtiapine FUMARATE 25 MG TAB PO SCH (21:51)
[2022-03-31] VITALS: BP 120/64
[2022-03-31 04:00] VITALS: BP 110/56
[2022-03-31] MEDS: HEPARIN SOD (PORCINE) 5000UNITS/ML 1ML VIAL/SYRINGE SC SCH (05:03)
[2022-03-31 05:25] LABS: HEMATOCRIT 43.1 % (42.0-52.0); MEAN CORPUSCULAR HEMOGLOBIN 30.1 pg (27.0-33.0); MEAN CORPUSCULAR HGB CONC 32.7 g/dl (32.0-36.5); MEAN CORPUSCULAR VOLUME 92.1 fl (80.0-96.0); PLATELET COUNT, AUTOMATED 576 10^3/uL (150-450); RED BLOOD COUNT 4.68 10^6/uL (4.30-6.10); WHITE BLOOD COUNT 19.3 10^3/uL (4.0-10.0)
[2022-03-31 05:26] LABS: HEMOGLOBIN 14.1 g/dl (13.5-17.5)
[2022-03-31 05:36] LABS: BLOOD UREA NITROGEN 25 MG/DL (7-18); C REACTIVE PROTEIN QUANTITATIV 2.27 MG/DL (0.00-0.30); CALCIUM LEVEL 8.8 MG/DL (8.5-10.1); CARBON DIOXIDE LEVEL 27 MEQ/L (21-32); CHLORIDE LEVEL 103 MEQ/L (98-107); CREATININE FOR GFR 0.88 MG/DL (0.70-1.30); GLOMERULAR FILTRATION RATE > 60.0 (>60); GLUCOSE, FASTING 93 MG/DL (70-100); MAGNESIUM LEVEL 2.4 MG/DL (1.8-2.4); POTASSIUM SERUM 4.8 MEQ/L (3.5-5.1); SODIUM LEVEL 136 MEQ/L (136-145)
[2022-03-31 05:47] LABS: ANISOCYTOSIS 1+; ATYPICAL LYMPH 9 % (0-5); LYMPHOCYTES 16 % (16-44); METAMYELOCYTES 4 % (0-0); MONOCYTES 12 % (0-5); MYELOCYTES 6 % (0-0); NEUTROPHILS 52 % (28-66); PLATELET ESTIMATE INCREASED (NORMAL); POIKILOCYTOSIS 1+; POLYCHROMASIA 1+
[2022-03-31] MEDS: SYMBICORT 160/4.5MCG INHALER 6GM INH SCH (07:17)
[2022-03-31] MEDS: IPRATROPIUM 0.5MG/ALBUTEROL 2.5MG INH SOL UD 3ML (DUONEB) NEB SCH ×2 (07:18→11:08)
[2022-03-31 08:05] VITALS: BP 123/68
[2022-03-31] MEDS ORDERED: PRED10TA2 PO (08:52)
[2022-03-31] MEDS ORDERED: AMOX875T2 PO (08:52)
[2022-03-31] MEDS: guaiFENesin ER 600 MG TAB PO SCH (08:53)
[2022-03-31] MEDS: predniSONE 20 MG TAB PO SCH (08:53)
[2022-03-31] MEDS: AUGMENTIN 875 MG TAB PO SCH (08:54)
[2022-03-31] MEDS: buPROPion **XL** TABLET 150MG (WELLBUTRIN XL) PO SCH (08:54)
== END 2022-03-31 12:24 | disposition home or self-care (01) | DRG 720 ==
LOC: M ED 15:17 → M ED INP 22:10 → ENRESERV 22:37 → M ICU 03-27 00:33 → M PCU 03-29 22:55
PROVIDERS: ADMIT Internal Medicine; ATTEND Internal Medicine
PROC: 0W9930Z Drainage of Right Pleural Cavity with Drainage Device, Percutaneous Approach (ICD-10-PCS; principal; 2022-03-26)
DX: A41.9 Sepsis, unspecified organism (principal); J96.01 Acute respiratory failure with hypoxia; J86.9 Pyothorax without fistula; J90 Pleural effusion, not elsewhere classified; F11.20 Opioid dependence, uncomplicated; F41.9 Anxiety disorder, unspecified; U07.0 Vaping-related disorder; F32.A Depression, unspecified; J12.3 Human metapneumovirus pneumonia; F17.290 Nicotine dependence, other tobacco product, uncomplicated; Z79.899 Other long term (current) drug therapy

== ENCOUNTER 2023-02-27 08:35 | Inpatient (IN) | payer OTHER ==
[~2023-02-27] VITALS: Ht 182.9 cm; Wt 89.4 kg
[~2023-02-27 08:35] MED LIST changes: +AMOX875T2 PO; +LEVO1TAB40 PO; -LEVO750T13 PO; +PRED10TA2 PO
[2023-02-27] MEDS ORDERED: NS 1,000 ML IV ONE ×2 (09:25→17:15)
[2023-02-27 09:55] LABS: BASO % 0.2 % (0.0-1.0); HEMATOCRIT 41.6 % (42.0-52.0); HEMOGLOBIN 14.7 g/dl (13.5-17.5); LYMPH # 1.3 10^3/uL (1.5-5.0); LYMPH % 7.7 % (24.0-44.0); MEAN CORPUSCULAR HEMOGLOBIN 31.5 pg (27.0-33.0); MEAN CORPUSCULAR HGB CONC 35.3 g/dl (32.0-36.5); MEAN CORPUSCULAR VOLUME 89.1 fl (80.0-96.0); MONO % 9.3 % (2.0-8.0); NEUTROPHILS # 14.3 10^3/uL (1.5-8.5); NEUTROPHILS % 82.2 % (36.0-66.0); PLATELET COUNT, AUTOMATED 158 10^3/uL (150-450); RED BLOOD COUNT 4.67 10^6/uL (4.30-6.10); WHITE BLOOD COUNT 17.4 10^3/uL (4.0-10.0)
[2023-02-27 10:14] LABS: MONO # 1.6 10^3/uL (0.0-0.8)
[2023-02-27 10:23] LABS: ALBUMIN 3.1 G/DL (3.2-5.2); ALKALINE PHOSPHATASE 76 U/L (46-116); ALT/SGPT 199 U/L (7.0-40); AST/SGOT 111 U/L (<34); BILIRUBIN,TOTAL 1.5 MG/DL (0.3-1.2); BLOOD UREA NITROGEN 14 MG/DL (9-23); CALCIUM LEVEL 8.4 MG/DL (8.5-10.1); CARBON DIOXIDE LEVEL 29 MMOL/L (20-31); CHLORIDE LEVEL 99 MMOL/L (98-107); CPK CREATINE PHOSPHOKINASE 325 U/L (46-171); CREATININE FOR GFR 1.01 MG/DL (0.70-1.30); GLOMERULAR FILTRATION RATE > 60.0 (>60); GLUCOSE, FASTING 107 MG/DL (60-100); SODIUM LEVEL 133 MMOL/L (136-145); TOTAL PROTEIN 6.6 G/DL (5.7-8.2)
[2023-02-27 10:24] LABS: CK-MB VALUE MASS 2.8 NG/ML (<3.6); MB/CK RELATIVE INDEX 0.86 (< OR =4)
[2023-02-27] MEDS ORDERED: VANCOMYCIN HCL 1,750 MG in NS 250 ML IV ONE (10:25)
[2023-02-27 10:29] LABS: ERYTHROCYTE SEDIMENTATION RATE 23 mm/hr (0-15)
[2023-02-27 10:51] LABS: RSV AMPLIFICATION NEGATIVE (NEGATIVE)
[2023-02-27] MEDS ORDERED: VANCOMYCIN HCL 750 MG, VIAL MATE ADAPTER 1 EACH in D5W 250 ML IV ONE (11:00)
[2023-02-27] MEDS ORDERED: VANCOMYCIN HCL 1,000 MG, VIAL MATE ADAPTER 1 EACH in D5W 250 ML IV ONE (11:00)
[2023-02-27] MEDS ORDERED: HOME MED LIST COMPLETE! XX SCH (11:05)
[2023-02-27 11:45] LABS: HEPATITIS B SURFACE ANTIGEN NEGATIVE (NEGATIVE)
[2023-02-27 12:06] LABS: HEPATITIS B CORE ANTIBODY IGM NEGATIVE (NEGATIVE)
[2023-02-27 12:38] LABS: HEPATITIS C VIRUS ABY INDEX > 11.0 INDEX (<0.8)
[2023-02-27 14:00] VITALS: BP 126/67
[2023-02-27] MEDS ORDERED: VANCOMYCIN HCL 1,000 MG, VIAL MATE ADAPTER 1 EACH in NS 250 ML IV SCH (14:30)
[2023-02-27] MEDS: PANTOPRAZOLE 40MG TAB (PROTONIX) PO SCH (14:40)
[2023-02-27] MEDS: ACETAMINOPHEN TAB 650MG DOSE (2X325MG) PO PRN (14:41)
[2023-02-27] MEDS: VANCOMYCIN HCL 1,000 MG, VIAL MATE ADAPTER 1 EACH in D5W 250 ML IV SCH ×2 (16:50→22:04)
[2023-02-27] MEDS: PIPERACILLIN/TAZOBACTAM SOD 4.5 GM in D5W MINI-BAG PLUS 50 ML IV SCH (17:59)
[2023-02-27] MEDS ORDERED: KETOROLAC 30 MG/ML 1ML VIAL IV ONE (20:25)
[2023-02-27] MEDS ORDERED: carisoprodoL 350 MG TAB PO PRN (20:25)
[2023-02-27 21:05] VITALS: BP 125/67
[2023-02-28] MEDS: PIPERACILLIN/TAZOBACTAM SOD 4.5 GM in D5W MINI-BAG PLUS 50 ML IV SCH ×2 (00:55→06:06)
[2023-02-28] MEDS: VANCOMYCIN HCL 1,000 MG, VIAL MATE ADAPTER 1 EACH in D5W 250 ML IV SCH ×2 (04:55→10:37)
[2023-02-28 06:00] VITALS: BP 126/77
[2023-02-28] MEDS: IBUPROFEN 800 MG TAB PO PRN ×2 (06:06→20:28)
[2023-02-28 07:10] LABS: BASO % 0.2 % (0.0-1.0); EOS % 0.2 % (0.0-3.0); HEMATOCRIT 41.1 % (42.0-52.0); HEMOGLOBIN 14.5 g/dl (13.5-17.5); LYMPH # 1.3 10^3/uL (1.5-5.0); LYMPH % 10.1 % (24.0-44.0); MEAN CORPUSCULAR HEMOGLOBIN 31.6 pg (27.0-33.0); MEAN CORPUSCULAR HGB CONC 35.3 g/dl (32.0-36.5); MEAN CORPUSCULAR VOLUME 89.5 fl (80.0-96.0); MONO # 0.9 10^3/uL (0.0-0.8); NEUTROPHILS # 10.9 10^3/uL (1.5-8.5); PLATELET COUNT, AUTOMATED 127 10^3/uL (150-450); RED BLOOD COUNT 4.59 10^6/uL (4.30-6.10); WHITE BLOOD COUNT 13.2 10^3/uL (4.0-10.0)
[2023-02-28 07:41] LABS: BLOOD UREA NITROGEN 8 MG/DL (9-23); CALCIUM LEVEL 7.5 MG/DL (8.5-10.1); CARBON DIOXIDE LEVEL 23 MMOL/L (20-31); CHLORIDE LEVEL 105 MMOL/L (98-107); CREATININE FOR GFR 0.72 MG/DL (0.70-1.30); GLOMERULAR FILTRATION RATE > 60.0 (>60); GLUCOSE, FASTING 138 MG/DL (60-100); POTASSIUM SERUM 3.6 MMOL/L (3.5-5.1); SODIUM LEVEL 135 MMOL/L (136-145)
[2023-02-28] MEDS: ENOXAPARIN 40MG/0.4ML SYRINGE (J1650 PER 10MG) SC SCH (09:42)
[2023-02-28] MEDS: PANTOPRAZOLE 40MG TAB (PROTONIX) PO SCH (09:42)
[2023-02-28] MEDS: ACETAMINOPHEN TAB 650MG DOSE (2X325MG) PO PRN ×2 (09:42→23:54)
[2023-02-28] MEDS: CEFTAROLINE FOSAMIL 600 MG in D5W MINI-BAG PLUS 50 ML IV SCH ×2 (12:38→23:55)
[2023-02-28] MEDS: METHADONE 10MG TAB PO SCH (13:45)
[2023-02-28] MEDS: metroNIDAZOLE 500 MG in IV 1 EA IV SCH ×2 (13:45→20:28)
[2023-02-28 14:00] VITALS: BP 122/75
[2023-02-28] MEDS ORDERED: LORazepam 0.5 MG TAB PO SCH (16:00)
[2023-02-28] MEDS: LORazepam 1 MG TAB PO PRN (20:27)
[2023-02-28 22:00] VITALS: BP 131/77
[2023-02-28] MEDS ORDERED: traZODone 25MG PER 1/2 TABLET PO ONE (23:05)
[2023-03-01] MEDS: LORazepam 1 MG TAB PO PRN ×2 (05:41→19:33)
[2023-03-01] MEDS: IBUPROFEN 800 MG TAB PO PRN ×2 (05:42→19:33)
[2023-03-01] MEDS: metroNIDAZOLE 500 MG in IV 1 EA IV SCH (05:42)
[2023-03-01 05:49] VITALS: BP 134/75
[2023-03-01 06:40] LABS: EOS % 8.6 % (0.0-3.0); LYMPH # 0.2 10^3/uL (1.5-5.0); LYMPH % 45.7 % (24.0-44.0); MEAN CORPUSCULAR HGB CONC 34.3 g/dl (32.0-36.5); MEAN CORPUSCULAR VOLUME 99.1 fl (80.0-96.0); MONO # 0.1 10^3/uL (0.0-0.8); MONO % 31.4 % (2.0-8.0); NEUTROPHILS % 14.3 % (36.0-66.0); RED BLOOD COUNT 2.12 10^6/uL (4.30-6.10)
[2023-03-01 06:44] LABS: WHITE BLOOD COUNT 0.4 10^3/uL (4.0-10.0)
[2023-03-01 06:45] LABS: HEMOGLOBIN 7.2 g/dl (13.5-17.5); NEUTROPHILS # 0.1 10^3/uL (1.5-8.5); PLATELET COUNT, AUTOMATED 25 10^3/uL (150-450)
[2023-03-01 07:11] LABS: BLOOD UREA NITROGEN 16 MG/DL (9-23); CARBON DIOXIDE LEVEL 26 MMOL/L (20-31); CHLORIDE LEVEL 109 MMOL/L (98-107); CREATININE FOR GFR 0.91 MG/DL (0.70-1.30); GLOMERULAR FILTRATION RATE > 60.0 (>60); GLUCOSE, FASTING 93 MG/DL (60-100); POTASSIUM SERUM 3.6 MMOL/L (3.5-5.1); SODIUM LEVEL 141 MMOL/L (136-145)
[2023-03-01 08:01] LABS: BASO % 0.4 % (0.0-1.0); EOS # 0.1 10^3/uL (0.0-0.5); EOS % 0.5 % (0.0-3.0); HEMATOCRIT 39.4 % (42.0-52.0); HEMOGLOBIN 14.3 g/dl (13.5-17.5); LYMPH # 1.8 10^3/uL (1.5-5.0); LYMPH % 18.4 % (24.0-44.0); MEAN CORPUSCULAR HEMOGLOBIN 31.7 pg (27.0-33.0); MEAN CORPUSCULAR HGB CONC 36.3 g/dl (32.0-36.5); MEAN CORPUSCULAR VOLUME 87.4 fl (80.0-96.0); MONO # 0.7 10^3/uL (0.0-0.8); MONO % 7.2 % (2.0-8.0); NEUTROPHILS # 7.2 10^3/uL (1.5-8.5); NEUTROPHILS % 73.2 % (36.0-66.0); RED BLOOD COUNT 4.51 10^6/uL (4.30-6.10); WHITE BLOOD COUNT 9.8 10^3/uL (4.0-10.0)
[2023-03-01 08:03] LABS: PLATELET COUNT, AUTOMATED 214 10^3/uL (150-450)
[2023-03-01] MEDS: METHADONE 10MG TAB PO SCH (08:19)
[2023-03-01] MEDS: PANTOPRAZOLE 40MG TAB (PROTONIX) PO SCH (08:19)
[2023-03-01] MEDS: ENOXAPARIN 40MG/0.4ML SYRINGE (J1650 PER 10MG) SC SCH (08:20)
[2023-03-01] MEDS: CEFTAROLINE FOSAMIL 600 MG in D5W MINI-BAG PLUS 50 ML IV SCH ×2 (11:22→23:45)
[2023-03-01 14:00] VITALS: BP 134/73
[2023-03-01 21:00] VITALS: BP 130/74
[2023-03-02 05:20] VITALS: BP 130/71
[2023-03-02] MEDS: IBUPROFEN 800 MG TAB PO PRN (06:36)
[2023-03-02] MEDS: LORazepam 1 MG TAB PO PRN ×2 (06:37→21:13)
[2023-03-02 08:07] LABS: HEMATOCRIT 41.8 % (42.0-52.0); HEMOGLOBIN 14.9 g/dl (13.5-17.5); MEAN CORPUSCULAR HEMOGLOBIN 31.2 pg (27.0-33.0); MEAN CORPUSCULAR HGB CONC 35.6 g/dl (32.0-36.5); MEAN CORPUSCULAR VOLUME 87.4 fl (80.0-96.0); PLATELET COUNT, AUTOMATED 226 10^3/uL (150-450); RED BLOOD COUNT 4.78 10^6/uL (4.30-6.10); WHITE BLOOD COUNT 7.7 10^3/uL (4.0-10.0)
[2023-03-02 08:31] LABS: BLOOD UREA NITROGEN 9 MG/DL (9-23); CALCIUM LEVEL 8.3 MG/DL (8.5-10.1); CARBON DIOXIDE LEVEL 25 MMOL/L (20-31); CHLORIDE LEVEL 105 MMOL/L (98-107); CREATININE FOR GFR 0.75 MG/DL (0.70-1.30); GLOMERULAR FILTRATION RATE > 60.0 (>60); GLUCOSE, FASTING 84 MG/DL (60-100); SODIUM LEVEL 137 MMOL/L (136-145)
[2023-03-02 08:33] LABS: ATYPICAL LYMPH 5 % (0-5); BASOPHILS 1 % (0-1); EOSINOPHILS 2 % (0-3); LYMPHOCYTES 26 % (16-44); MONOCYTES 5 % (0-5); NEUTROPHILS 59 % (28-66); PLASMA CELL 1 % (0-0)
[2023-03-02 08:37] LABS: PLATELET ESTIMATE NORMAL (NORMAL); POLYCHROMASIA 1+
[2023-03-02] MEDS: ENOXAPARIN 40MG/0.4ML SYRINGE (J1650 PER 10MG) SC SCH (08:49)
[2023-03-02] MEDS: METHADONE 10MG TAB PO SCH (08:50)
[2023-03-02] MEDS: ACETAMINOPHEN TAB 650MG DOSE (2X325MG) PO PRN (08:50)
[2023-03-02] MEDS: PANTOPRAZOLE 40MG TAB (PROTONIX) PO SCH (08:50)
[2023-03-02] MEDS: CEFTAROLINE FOSAMIL 600 MG in D5W MINI-BAG PLUS 50 ML IV SCH (12:21)
[2023-03-02 14:00] VITALS: BP 110/62
[2023-03-02 21:00] VITALS: BP 129/74
[2023-03-03] MEDS: CEFTAROLINE FOSAMIL 600 MG in D5W MINI-BAG PLUS 50 ML IV SCH (00:03)
[2023-03-03 05:00] VITALS: BP 130/61
[2023-03-03] MEDS: LORazepam 1 MG TAB PO PRN (06:00)
[2023-03-03] MEDS ORDERED: CEFD300C41 PO (06:46)
[2023-03-03] MEDS ORDERED: IBUP80TA PO (06:46)
[2023-03-03] MEDS ORDERED: ACET-683 PO (06:46)
[2023-03-03] MEDS: ENOXAPARIN 40MG/0.4ML SYRINGE (J1650 PER 10MG) SC SCH (08:04)
[2023-03-03] MEDS: METHADONE 10MG TAB PO SCH (08:04)
[2023-03-03] MEDS: PANTOPRAZOLE 40MG TAB (PROTONIX) PO SCH (08:04)
[2023-03-03] MEDS: IBUPROFEN 800 MG TAB PO PRN (08:05)
== END 2023-03-03 09:52 | disposition home or self-care (01) | DRG 720 ==
LOC: EDBD 08:35 → M ED 08:35 → M ED INP 13:24 → ENRESERV 13:43 → M MSPAV 14:10
PROVIDERS: ADMIT Internal Medicine Nephrology; ATTEND Internal Medicine Nephrology
DX: A41.9 Sepsis, unspecified organism (principal); I80.8 Phlebitis and thrombophlebitis of other sites; L03.113 Cellulitis of right upper limb; B19.20 Unspecified viral hepatitis C without hepatic coma; F11.10 Opioid abuse, uncomplicated; F32.A Depression, unspecified; F41.0 Panic disorder [episodic paroxysmal anxiety]; F17.200 Nicotine dependence, unspecified, uncomplicated; B95.0 Streptococcus, group A, as the cause of diseases classified elsewhere

== ENCOUNTER → 2023-04-22 | Outpatient (CLI) | payer OTHER ==
[~2023-04-22] MED LIST changes: +ACET-683 PO; +CEFD300C41 PO; +IBUP80TA PO
[2023-04-22 13:28] LABS: HEMATOCRIT 43.1 % (42.0-52.0); HEMOGLOBIN 14.7 g/dl (13.5-17.5); MEAN CORPUSCULAR HEMOGLOBIN 31.3 pg (27.0-33.0); MEAN CORPUSCULAR HGB CONC 34.1 g/dl (32.0-36.5); MEAN CORPUSCULAR VOLUME 91.7 fl (80.0-96.0); PLATELET COUNT, AUTOMATED 191 10^3/uL (150-450); WHITE BLOOD COUNT 9.1 10^3/uL (4.0-10.0)
[2023-04-22 13:52] LABS: ALBUMIN 3.8 G/DL (3.2-5.2); ALKALINE PHOSPHATASE 80 U/L (46-116); ALT/SGPT 57 U/L (7.0-40); AST/SGOT 15 U/L (<34); BILIRUBIN,TOTAL 0.7 MG/DL (0.3-1.2); BLOOD UREA NITROGEN 17 MG/DL (9-23); CALCIUM LEVEL 8.8 MG/DL (8.5-10.1); CARBON DIOXIDE LEVEL 28 MMOL/L (20-31); CHLORIDE LEVEL 104 MMOL/L (98-107); CREATININE FOR GFR 0.93 MG/DL (0.70-1.30); GLOMERULAR FILTRATION RATE > 60.0 (>60); GLUCOSE, FASTING 69 MG/DL (60-100); POTASSIUM SERUM 3.8 MMOL/L (3.5-5.1); SODIUM LEVEL 138 MMOL/L (136-145)
[2023-04-22 14:11] LABS: HEPATITIS B SURFACE ANTIGEN NEGATIVE (NEGATIVE)
[2023-04-22 14:24] LABS: HIV 1&2 SCREEN NEGATIVE (NEGATIVE)
[2023-04-22 14:59] LABS: HEPATITIS C VIRUS ABY INDEX > 11.0 INDEX (<0.8)
[2023-04-22 15:25] LABS: GC DNA AMPLIFICATION NEGATIVE (NEGATIVE)
== END ==
LOC: M WUC 10:46
PROVIDERS: ATTEND Family Medicine
DX: F11.20 Opioid dependence, uncomplicated (principal)